=== PATIENT | male | born 1945 | race Caucasian/White ===

== ENCOUNTER → 2017-01-22 10:02 | Outpatient (CLI) | payer MEDICARE, BC ==
[2015-09-11 12:25] VITALS: BMI 23.0
[~2017-01-22 10:02] MED LIST: ANORO ELLIPTA1 EACH INH; ATARAX 25 MG TA25 MG PO; BAYER CHEWABLE81 MG PO; ELIQUIS2.5 MG PO; GLUCOSAMINE & C1 CAP PO; HYDROCODONE-APA1 TAB PO; KEFLEX500 MG PO; LOPID600 MG PO; METAMUCIL FIB1 WAFER PO; MIRALAX17 GM PO; MULTIPLE VITAMI1 TA1 PO; NASACORT10.8 ML NASAL; NEXIUM40 MG PO; NORVASC5 MG PO; PRILOSEC20 MG PO; VITAMIN E400 UNI2 PO
== END | disposition home or self-care (01) ==
LOC: D.LABREF 10:02
DX: M19.90 Unspecified osteoarthritis, unspecified site (principal); Z11.8 Encounter for screening for other infectious and parasitic diseases

== ENCOUNTER 2017-01-31 10:00 | Inpatient (IN) | payer MEDICARE, BC ==
[~2017-01-31] VITALS: Ht 182.9 cm; Wt 79.1 kg
--- NOTE | ~2017-01-31 | OP ---
PATIENT NAME: CRISPIN JOHNSTON MEDICAL RECORD: [id number] :47 LOCATION:D D.2232 ADMISSION DATE:02/06/17 SURGEON: SRINIVASA COATS DO DATE OF OPERATION: 02/06/2017 DATE OF PROCEDURE: 02/06/2017 PROCEDURE PERFORMED: Right total hip arthroplasty. PREOPERATIVE DIAGNOSIS: Right hip avascular necrosis. POSTOPERATIVE DIAGNOSIS: Right hip avascular necrosis. INDICATIONS: Mr. Johnston is a 71-year-old male who presented to my office with longstanding right hip pain and left hip pain, right greater than left. He said that he has tried everything he can imagine without surgery and got an MRI from his primary care, which showed the AVN. I told him that he was at a stage where he is about to collapse and that we can watch it until it did. He said he did not wish that to happen, he wanted to get something done. He is tired of dealing with the pain, so he was informed of the risks and benefits of a total hip and he verbally consented to that. He was scheduled for today. SURGEON: Srinivasa Coats DO COMPLICATIONS: None. BLOOD LOSS: 250 mL. DESCRIPTION OF PROCEDURE: The patient was given a block in the preoperative area by anesthesia and taken to the operative suite, given a gram of Ancef preoperatively and TXA as well and the right hip was prepped and draped in sterile fashion. A timeout was performed and everyone was in agreeance to this as the correct side, site and patient. Once this was done, the incision was made right over the tensor fascia jessica and careful dissection made down to the fascia itself of the muscle. The fascia was incised and then off the muscle belly. The fascia was taken anteriorly and muscle belly posteriorly with large Adson Michele. Then the fascia over the rectus was incised and the Adson Michele was turned more and taken the rectus medially and the tensor fascia laterally. The vessels were then encountered. They were tied off and coagulated with the Aquamantys and then bovied through with the plasma knife. Then, the hip capsule was encountered and was incised. Retractors were placed around the femoral neck. Once this was done, the femoral neck cut was made and the head was removed with a corkscrew. The acetabulum was then exposed and the Charnley was placed. The labrum was removed and reaming began, starting with 44 up to 56. His bone was quite soft, so we put some of the reamings into the acetabulum and impacted a 56 cup and was seen to be in very good position and went in well. After this was done, the femur was then addressed. The femur was exposed more and the hook under the femur was put on the femur and the hip was dropped and put in an external rotation. Femur was in abduction and extension. The broaching began. Gold Lasso cutter was used to get into the canal and the canal finder and we broached up to 12, which seemed to be a good fit. Reduction was then made and seemed to need higher offset, went to high offset with standard neck and once this reduction was made and x-rays were taken, this was seen to be in good position and good length compared to the other side. This was then inserted and reduced. Any bleeders were coagulated at that time and thorough OPERATIVE REPORT [id number] CRISPIN JOHNSTON irrigation was made. After it was reduced, x-rays were taken. There were no fractures seen in the femur. The stem was in good position and good length on the hip. We then irrigated and closed the capsule with #2 Ethibond and then Farhan was placed in the wound. We then irrigated again and dried well and the fascia was closed with #1 Vicryl [id number] and then running locking stitch. The skin was then closed with 2-0 Vicryl and Prineo on the skin. Telfa and Tegaderm were placed over that. The patient was awakened and taken to recovery in stable condition. Blood loss 250. Complications none, right total hip. TRANSINT:[id number] Voice Confirmation ID: [id number] DOCUMENT ID: [id number] SRINIVASA COATS DO at 1216 CC: [id number] DICTATION DATE: 02/06/17 1038 INVESTMENT ACCOUNTANT: 02/06/17 1131 ADM IN [facility] [address] [id number]
[~2017-01-31 10:00] MED LIST changes: -ATARAX 25 MG TA25 MG PO; -ELIQUIS2.5 MG PO; -HYDROCODONE-APA1 TAB PO; -KEFLEX500 MG PO
[2017-01-31 11:18] LABS: BASOPHILS 0.2 % (0-2); EOSINOPHILS 1.3 % (0-7); HEMATOCRIT 45.8 % (42.0-54.0); HEMOGLOBIN 15.9 g/dL (13.5-17.5); IMMATURE GRANULOCYTES 0.2 % (0-5); LYMPHOCYTES 25.9 % (15-50); MCH 36.1 pg (26.0-34.0); MCHC 34.7 g/dL (31.0-37.0); MCV 104.1 fL (80.0-100.0); MEAN PLATELET VOLUME 9.8 fL (7.4-10.4); MONOCYTES 10.5 % (2-11); NEUTROPHILS 61.9 % (40-80); PLATELET COUNT 208 10x3/uL (130-400); RDW 13.1 % (11.5-14.5); WBC 5.3 10x3/uL (4.8-10.8)
[2017-01-31 11:26] LABS: ANION GAP 9.9 mmol/L (8-16); CALCIUM 9.2 mg/dL (8.5-10.1); CARBON DIOXIDE 32.8 mmol/L (21.0-32.0); CREATININE - SERUM 1.2 mg/dL (0.6-1.3); POTASSIUM - SERUM 3.7 mmol/L (3.5-5.1)
[2017-01-31 11:27] LABS: INR 0.93 (0.85-1.17); PROTIME 12.1 SECONDS (11.6-15.0)
[2017-01-31 12:07] LABS: APPEARANCE CLEAR (CLEAR); BILIRUBIN NEGATIVE (NEGATIVE); COLOR YELLOW (YELLOW); GLUCOSE NEGATIVE (NEGATIVE); KETONE NEGATIVE (NEGATIVE); NITRITE NEGATIVE (NEGATIVE); PROTEIN NEGATIVE (NEGATIVE); UROBILINOGEN NORMAL (NORMAL)
[2017-02-06 06:12] VITALS: BP 117/66; BMI 23.6
[2017-02-06 11:12] VITALS: BP 139/70
[2017-02-07 04:12] VITALS: Ht 182.9 cm; Wt 79.1 kg
[2017-02-07 05:43] LABS: HEMATOCRIT 36.3 % (42.0-54.0); HEMOGLOBIN 12.6 g/dL (13.5-17.5); MCH 35.8 pg (26.0-34.0); MCHC 34.7 g/dL (31.0-37.0); MCV 103.1 fL (80.0-100.0); RBC 3.52 10x6/uL (4.20-6.10); RDW 13.4 % (11.5-14.5); WBC 10.2 10x3/uL (4.8-10.8)
[2017-02-07 08:44] VITALS: BP 110/60
[2017-02-07 11:53] VITALS: BP 106/60
[2017-02-07 20:00] VITALS: BP 116/52
[2017-02-08] VITALS: BP 110/58
[2017-02-08 05:00] VITALS: BP 133/70
[2017-02-08 06:02] LABS: HEMATOCRIT 32.9 % (42.0-54.0); HEMOGLOBIN 11.4 g/dL (13.5-17.5); MCHC 34.7 g/dL (31.0-37.0); MCV 103.8 fL (80.0-100.0); RBC 3.17 10x6/uL (4.20-6.10); RDW 13.2 % (11.5-14.5); WBC 8.2 10x3/uL (4.8-10.8)
[2017-02-08 08:33] VITALS: BP 124/66
[2017-02-08 20:00] VITALS: BP 123/61
[2017-02-09 04:00] VITALS: BP 119/63
[2017-02-09] MEDS ORDERED: ELIQUIS2.5 MG PO (07:30)
[2017-02-09] MEDS ORDERED: HYDROCODONE-APA1 TAB PO (07:30)
[2017-02-09] MEDS ORDERED: ATARAX 25 MG TA25 MG PO (07:30)
[2017-02-09] MEDS ORDERED: KEFLEX500 MG PO (07:31)
[2017-02-09 08:16] VITALS: BP 126/60
[2017-02-09 12:57] VITALS: BP 132/64
[2017-02-09 16:14] VITALS: BP 125/59
== END 2017-02-09 20:30 | DRG 470 ==
LOC: D.MS 02-06 05:07 → D.SDCHOLD 02-06 05:07 → D.MS 02-06 10:51
PROVIDERS: Orthopaedic Surgery
PROC: 0SR90JZ Replacement of Right Hip Joint with Synthetic Substitute, Open Approach (ICD-10-PCS; principal; 2017-02-06 07:30)
DX: M87.9 Osteonecrosis, unspecified (principal); J44.9 Chronic obstructive pulmonary disease, unspecified; I10 Essential (primary) hypertension; F17.200 Nicotine dependence, unspecified, uncomplicated; D75.89 Other specified diseases of blood and blood-forming organs; F10.10 Alcohol abuse, uncomplicated

== ENCOUNTER 2017-02-09 20:50 | Inpatient (IN) | payer MEDICARE, BC ==
[~2017-02-09] VITALS: Ht 182.9 cm; Wt 78.9 kg
--- NOTE | ~2017-02-09 | RHP ---
PATIENT: CRISPIN JOHNSTON MEDICAL RECORD: [id number] ACCOUNT: [id number] LOCATION:[facility].1108 : 47 ADMISSION DATE: 02/09/17 REHABILITATION HISTORY AND PHYSICAL EXAMINATION POST ADMISSION PHYSICIAN EXAMINATION DATE OF ADMISSION TO THE REHAB: 02/09/2017. 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 HISTORY OF PRESENT ILLNESS: The patient admitted to the rehab secondary to pain secondary to avascular necrosis of his right hip. The patient is a 70-year-old gentleman who has severe avascular necrosis to his right hip. He had postoperative blood loss leukemia and increased postop pain and agitation. He has a history of ETOH uses. He is continued to be monitored for possible DTs. He has got a medical history of diverticulitis with status post colostomy with a later takedown and monitor for possible postop ileus. He has had problems with anesthesia in the past and also pain medicine use. He has macrocytosis secondary to chronic ETOH ingestion. He is on Eliquis for anticoagulation. He lives at home with his . He was independent with ADLs and mobility, status post prior to surgery. He is currently set up from max assist with ADLs and moderate assist to total assist with mobility. Plan is to return home with his hopefully at a prior level of functioning or better. COMORBIDITIES: In this patient include status post total hip arthroplasty. He has got chronic avascular necrosis. He has got pain, postoperative blood loss anemia, COPD, hypertension, tobacco use, ETOH use, macrocytosis, immobility and self-care deficits. PAST MEDICAL HISTORY: Significant for COPD, hypertension, diverticulitis, status post colostomy. He has had a left elbow tendon rupture, tobacco use, and alcohol use. PAST SURGICAL HISTORY: Includes appendectomy, tonsillectomy, appendectomy, cervical fusion times 2. He has had a Natalia's procedure for colostomy reversal and left elbow surgery. ALLERGIES: OXYCODONE. CURRENT MEDICATIONS: Include vitamin E 400 units daily. He is on Anoro 1 puff daily. He is on Flonase nasal spray 1 spray daily, multivitamin 1 tab daily. He is on glucosamine and chondroitin sulfate 1 cap daily. He is on Protonix 40 mg daily, Keflex 500 mg b.i.d., Eliquis 2.5 mg b.i.d., amlodipine 2.5 mg daily, polyethylene glycol 17 grams in 8 ounces of water daily. He is on Metamucil one wafer daily. He is on Atarax 50 mg q.6 hours p.r.n. and [place] as needed for pain. HABITS: He does have a history of alcohol, tobacco use. FAMILY HISTORY: Noncontributory. SOCIAL HISTORY: The patient hopes to return back home and get back to his prior level of functioning. HISTORY AND PHYSICAL [id number] CRISPIN JOHNSTON REVIEW OF SYSTEMS: GENERAL: He does complain of some weakness. HEENT: Denies cold, congestion at this time, but does complain of some cough. LUNGS: Does not complain of any shortness of breath. ABDOMEN: Denies any change in bowel or bladder habits. PHYSICAL EXAMINATION: VITAL SIGNS: Stable. He is afebrile. GENERAL: A well-developed gentleman in no acute distress, alert upon exam. HEENT: Normocephalic and atraumatic. Mucosa moist. NECK: Supple. No lymphadenopathy. LUNGS: Clear at this time. HEART: Regular rate and rhythm. ABDOMEN: Benign. EXTREMITIES: No abnormal postop swelling at this time. NEUROLOGIC: Seems intact. LABORATORY DATA: His white count is 6.2, H&H of 10 and 29, and platelet count was noted to be 219. His MCV is elevated at 102.1 from his previous alcohol use. Sodium 138, potassium 3.7, BUN and creatinine of 17 and 1.0 and blood sugar was noted to be 99. ASSESSMENT: This is a 71-year-old gentleman admitted to the rehab with a working diagnosis of status post total hip replacement secondary to avascular necrosis. The patient has potential to make improvement. We instituted the following multidisciplinary therapies including to, but not limited to physical, occupational, respiratory, speech, nutritional services, prosthetics and orthotics. Given his complex condition and risk for more complications, rehabilitation services cannot be provided at a low level of care such as a senior living facility. PLAN: 1. Admit to [facility] rehab for intensive inpatient therapy to include the following disciplines: A. Physical therapy to improve gait, all transfer skills and bed mobility to a modified independent level. B. Occupational therapy to improve activities of daily living to a modified independent level. C. Case management to assist with discharge planning and placement options. D. Nutrition to assist with nutritional needs. E. Rehabilitation nursing to assist in monitoring the patient's underlying medical conditions and to assist with any type of bowel or bladder management. 2. The patient's current medication and medical care will be continued. 3. We will go ahead and give him some medication for his cough. 4. We will watch for any signs of DTs. 5. Discuss this patient during care team staff meeting this week. TRANSINT:[id number] Voice Confirmation ID: [id number] DOCUMENT ID: [id number] ANDREA notes whether there has been none or any medical/functional change since admission: - No change since prescreen. HISTORY AND PHYSICAL [id number] CRISPIN JOHNSTON attests patient continues to be appropriate for IRF: - Continues to be appropriate. JEFF SHORT MD at 1057 CC: [id number] DICTATION DATE: 02/10/17 1120 INCIDENT COORDINATOR: 02/10/17 1204 ADM IN [place] [id number] [place] [id number]
[~2017-02-09 20:50] MED LIST changes: +ATARAX 25 MG TA25 MG PO; +ELIQUIS2.5 MG PO; +HYDROCODONE-APA1 TAB PO; +KEFLEX500 MG PO
[2017-02-09 21:37] VITALS: BP 111/62
[2017-02-10 06:23] LABS: BASOPHILS 0.2 % (0-2); EOSINOPHILS 3.5 % (0-7); HEMATOCRIT 29.2 % (42.0-54.0); HEMOGLOBIN 10.3 g/dL (13.5-17.5); IMMATURE GRANULOCYTES 0.2 % (0-5); LYMPHOCYTES 19.2 % (15-50); MCHC 35.3 g/dL (31.0-37.0); MCV 102.1 fL (80.0-100.0); MEAN PLATELET VOLUME 9.8 fL (7.4-10.4); MONOCYTES 17.8 % (2-11); NEUTROPHILS 59.1 % (40-80); PLATELET COUNT 219 10x3/uL (130-400); RBC 2.86 10x6/uL (4.20-6.10); RDW 12.7 % (11.5-14.5); WBC 6.2 10x3/uL (4.8-10.8)
[2017-02-10 06:36] LABS: CALC OSMOLALITY 277 mosm/kg (275-300); CALCIUM 8.4 mg/dL (8.5-10.1); CHLORIDE - SERUM 101 mmol/L (98-107); GLUCOSE 99 mg/dL (74-106); POTASSIUM - SERUM 3.7 mmol/L (3.5-5.1); SODIUM 138 mmol/L (136-145); UREA NITROGEN 17 mg/dL (7-18); eGFR NON AFRICAN AMERICAN 79 mL/min (90-120)
[2017-02-10 08:11] VITALS: BP 130/64
[2017-02-10 14:35] VITALS: Ht 182.9 cm; Wt 78.9 kg
[2017-02-10 22:05] VITALS: BP 117/59
[2017-02-11 08:16] VITALS: BP 119/71
[2017-02-11 19:53] VITALS: BP 110/54
[2017-02-12 08:00] VITALS: BP 141/67
[2017-02-12] MEDS ORDERED: HYDROCODONE-APA1 TAB PO (10:58)
== END 2017-02-12 12:35 | disposition home or self-care (01) | DRG 554 ==
LOC: D.REHAB 20:50
PROVIDERS: Emergency Medicine
DX: M87.9 Osteonecrosis, unspecified (principal); D62 Acute posthemorrhagic anemia; J44.9 Chronic obstructive pulmonary disease, unspecified; I10 Essential (primary) hypertension; Z72.0 Tobacco use

== ENCOUNTER → 2017-09-10 07:09 | Outpatient (CLI) | payer MEDICARE, BC ==
[2017-02-10 14:35] VITALS: BMI 23.6
[~2017-09-10 07:09] MED LIST changes: +ATIVAN1 MG PO; +CALCIUM 600+D T1 TA1 PO; +ENDOCET 10-3251 TAB PO; +NORCO 7.5/325 T1 TA1 PO; +ROCEPHIN 2 GM/D52 G1 IV; +TRAZODONE HCL50 MG PO; +ULTRAM50 MG PO; +ZOFRAN ODT4 MG/UDTAB PO
== END | disposition home or self-care (01) ==
LOC: D.MRI 07:09
DX: S46.001D Unspecified injury of muscle(s) and tendon(s) of the rotator cuff of right shoulder, subsequent encounter (principal)

== ENCOUNTER 2017-09-18 09:55 | Day surgery (SDC) | payer MEDICARE, BC ==
[2017-09-17 13:48] LABS: HEMATOCRIT 48.2 % (42.0-54.0); HEMOGLOBIN 17.3 g/dL (13.5-17.5); MCH 36.8 pg (26.0-34.0); MCHC 35.9 g/dL (31.0-37.0); MCV 102.6 fL (80.0-100.0); MEAN PLATELET VOLUME 9.9 fL (7.4-10.4); RBC 4.7 10x6/uL (4.20-6.10); RDW 12.5 % (11.5-14.5); WBC 6.9 10x3/uL (4.8-10.8)
[~2017-09-18] VITALS: Ht 182.9 cm; Wt 78.5 kg
--- NOTE | ~2017-09-18 | OP ---
PATIENT NAME: CRISPIN JOHNSTON MEDICAL RECORD: [id number] :47 LOCATION:[facility] ADMISSION DATE: SURGEON: SRINIVASA COATS DO DATE OF OPERATION: 09/18/2017 PROCEDURE PERFORMED: Right shoulder arthroscopy with subacromial decompression, distal clavicle excision, biceps tenodesis, subscapularis repair, and mini open supraspinatus repair. 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 INDICATION FOR THE PROCEDURE: Mr. Johnston is a 72-year-old male that presented to my office a month ago complaining of right shoulder pain. I did give him an injection. He had a fall back in April and had shoulder pain since. He called back and said injection did not help. We ordered an MRI. MRI showed the findings as discussed above; the subscapularis tear with retraction to the glenoid with biceps tendon subluxing medially into the joint, bursal-sided supraspinatus tear, AC joint arthritis, and type 2 acromion. The patient was talked over the phone and explained what was found on the MRI. He said he wanted surgery due to the fact he is tired of dealing with the pain. He is aware of risks and benefits of the procedures including increased risk for retear due to the fact he had 2 tendons torn. He is okay with that and consented to the procedure. SURGEON: Srinivasa Coats DO DESCRIPTION OF PROCEDURE: The patient was given a block preoperatively by the anesthesia, taken to the operative suite, laid in the left lateral recumbent position with the right arm up. Time-out was performed and everyone was in agreement as to correct side, site, patient, and procedure. The patient was given 900 mg of clindamycin preoperatively. The right upper extremity was prepped and draped in sterile fashion with right arm hung on the boom with 15 pounds on it. The shoulder joint was then injected with 60 mL of normal saline put in from posterior portal and then the posterior portal was established with #11 blade scalpel. Trocar was entered into the joint and the joint was inspected. Joint line looked good. No osteoarthritis of the shoulder joint itself; however, immediately, the biceps tendon was noted to be subluxed medially. This was tenotomized at that time. After the anterior portal was established with an 18-gauge spinal needle, then a trocar was put in. A burner was used to do the tenotomy. The subscapularis tendon was then encountered and seen, grasped, and seemed to have some adhesions. These were released using a shaver. Once the adhesions were released, it was easily reducible to the lesser tuberosity and a FiberTape was used to bite through the superior portion of the subscapularis tendon that had been torn. The inferior proximal third of the tendon was left intact on lesser tuberosity. The torn portion was grasped with the Scorpion and a horizontal mattress stitch was put in using a FiberTape and then pulled and reduced to the lesser tuberosity. Austin was then put into place to secure it. It had very nice reduction with a single anchor. The tendon was seen to be back in position where it should be and then this was OPERATIVE REPORT [id number] PRESTONCRISPIN GUZMÁN tested with internal and external rotation, seemed to have very good fixation. The FiberTape was cut with a cutter. The lesser tuberosity had been prepared with a shaver to remove all soft tissue and create a bleeding surface. The scope was then put in the subacromial space. A subacromial decompression was then performed and distal clavicle excision after lateral portal had been established. The anterolateral portal had been established previously to assist with the subscapularis repair. The supraspinatus tendon was then inspected and bursectomy was done and seen to have a bursal-sided smaller tear towards the anterior portion of the cuff. This was noted and converted to open at that time. Incision was extended over the lateral portal and careful dissection was made down to the tear itself. It had been marked with a spinal needle with Leia's and was exposed. The greater tuberosity was then prepared with a shaver and decorticated. Then a punch was used to insert the anchor and Scorpion was used to bite through the supraspinatus with a single FiberTape anterior and posterior and then pulled over laterally to anchor. This had a nice reduction and the scope had been removed prior to this. This was then irrigated and then I went to the anterior portion of the arm. Incision was made in the subpec area. Dissection was made down to the humerus. After looking for quite some time, the long head of the biceps tendon could not be encountered, likely due to the fact that it had been subluxed out of the bicipital groove for some time. This part of the surgery was left tenonotomy not tenodesed. The wounds were all then thoroughly irrigated and closed with 2-0 Vicryl and then 3-0 Monocryl ran on the skin. The portal sites had been closed with 3-0 Vicryl in inverted interrupted fashion. Telfa and Tegaderm were placed over each of the sites. The patient was awakened and taken to recovery in stable condition. Blood loss was minimal. COMPLICATIONS: None. TRANSINT:[id number] Voice Confirmation ID: [id number] DOCUMENT ID: [id number] SRINIVASA COATS DO at 1022 CC: [id number] DICTATION DATE: 09/18/17 173 MANAGER MARKET INTELLIGENCE: 09/18/17 1905 [facility] 09/18/17 [facility] [address] [place] [address]
[~2017-09-18 09:55] MED LIST changes: -ATIVAN1 MG PO; -CALCIUM 600+D T1 TA1 PO; -ENDOCET 10-3251 TAB PO; -NORCO 7.5/325 T1 TA1 PO; -ROCEPHIN 2 GM/D52 G1 IV; -TRAZODONE HCL50 MG PO; -ULTRAM50 MG PO; -ZOFRAN ODT4 MG/UDTAB PO
[2017-09-18] MEDS ORDERED: BAYER CHEWABLE81 MG PO (10:30)
[2017-09-18 10:34] VITALS: BP 140/76; Ht 182.9 cm; Wt 78.5 kg
[2017-09-18] MEDS ORDERED: KEFLEX500 MG PO (16:55)
[2017-09-18] MEDS ORDERED: ZOFRAN ODT4 MG/UDTAB PO (16:56)
[2017-09-18] MEDS ORDERED: NORCO 7.5/325 T1 TA1 PO (16:56)
[2017-09-18] MEDS ORDERED: ULTRAM50 MG PO (17:22)
[2017-10-09] MEDS ORDERED: HYDROCODONE-APA1 TAB PO (17:25)
== END 2017-09-18 18:45 | disposition home or self-care (01) ==
LOC: D.OPS 09:55 → D.PAN 13:15 → D.OPS 18:45
PROVIDERS: Anesthesiology
DX: M75.111 Incomplete rotator cuff tear or rupture of right shoulder, not specified as traumatic (principal); M75.41 Impingement syndrome of right shoulder; M19.011 Primary osteoarthritis, right shoulder; M67.813 Other specified disorders of tendon, right shoulder; Z01.812 Encounter for preprocedural laboratory examination

== ENCOUNTER 2017-09-30 21:57 | Observation (INO) | payer MEDICARE, BC ==
[~2017-09-30] VITALS: Ht 182.9 cm; Wt 78.6 kg
[~2017-09-30 21:57] MED LIST changes: +NORCO 7.5/325 T1 TA1 PO; +ULTRAM50 MG PO; +ZOFRAN ODT4 MG/UDTAB PO
[2017-09-30 22:58] LABS: BASOPHILS 0.3 % (0-2); EOSINOPHILS 2.2 % (0-7); HEMATOCRIT 41.1 % (42.0-54.0); HEMOGLOBIN 14.3 g/dL (13.5-17.5); IMMATURE GRANULOCYTES 0.3 % (0-5); MCH 35.7 pg (26.0-34.0); MCHC 34.8 g/dL (31.0-37.0); MCV 102.5 fL (80.0-100.0); MEAN PLATELET VOLUME 9.3 fL (7.4-10.4); MONOCYTES 10.5 % (2-11); NEUTROPHILS 65.7 % (40-80); RBC 4.01 10x6/uL (4.20-6.10); RDW 12.4 % (11.5-14.5); WBC 9.9 10x3/uL (4.8-10.8)
[2017-09-30 22:59] LABS: PLATELET COUNT 284 10x3/uL (130-400)
[2017-09-30 23:10] LABS: INR 0.82 (0.85-1.17)
[2017-09-30 23:15] LABS: ALBUMIN 3.5 g/dL (3.4-5.0); ANION GAP 9.9 mmol/L (8-16); BILIRUBIN - TOTAL 0.34 mg/dL (0.2-1.3); CALCIUM 8.6 mg/dL (8.5-10.1); CARBON DIOXIDE 32.7 mmol/L (21.0-32.0); CREATININE - SERUM 1.1 mg/dL (0.6-1.3); POTASSIUM - SERUM 3.6 mmol/L (3.5-5.1); PROTEIN - SERUM 6.8 g/dL (6.4-8.2)
[2017-09-30] MEDS ORDERED: CALCIUM 600+D T1 TA1 PO (23:49)
[2017-10-01 00:11] VITALS: BP 126/76; Ht 182.9 cm; Wt 78.6 kg
[2017-10-01 04:49] VITALS: BP 139/82
[2017-10-01 09:11] VITALS: BP 139/80
[2017-10-01 12:18] VITALS: BP 98/73
[2017-10-01] MEDS ORDERED: ATIVAN1 MG PO (13:01)
[2017-10-09] MEDS ORDERED: HYDROCODONE-APA1 TAB PO (17:25)
== END 2017-10-01 14:22 | disposition home or self-care (01) ==
LOC: D.ER 21:57 → OBSVTIME 22:43 → D.EDHOLD 22:43 → D.MS 23:03
PROVIDERS: Emergency Medicine
DX: G89.18 Other acute postprocedural pain (principal); I10 Essential (primary) hypertension; A41.9 Sepsis, unspecified organism; F17.200 Nicotine dependence, unspecified, uncomplicated

== ENCOUNTER → 2017-10-09 10:45 | Outpatient (CLI) | payer MEDICARE, BC ==
[2017-10-01 00:11] VITALS: BMI 23.5
[~2017-10-09 10:45] MED LIST changes: +ATIVAN1 MG PO; +CALCIUM 600+D T1 TA1 PO; +ENDOCET 10-3251 TAB PO; +ROCEPHIN 2 GM/D52 G1 IV; +TRAZODONE HCL50 MG PO
[2017-10-09 11:11] LABS: BASOPHILS 0.2 % (0-2); EOSINOPHILS 2.2 % (0-7); HEMATOCRIT 39.5 % (42.0-54.0); HEMOGLOBIN 13.9 g/dL (13.5-17.5); IMMATURE GRANULOCYTES 0.2 % (0-5); MCH 35.8 pg (26.0-34.0); MCHC 35.2 g/dL (31.0-37.0); MCV 101.8 fL (80.0-100.0); MEAN PLATELET VOLUME 10.1 fL (7.4-10.4); MONOCYTES 12.7 % (2-11); NEUTROPHILS 72.7 % (40-80); PLATELET COUNT 333 10x3/uL (130-400); RBC 3.88 10x6/uL (4.20-6.10); RDW 11.8 % (11.5-14.5); WBC 8.3 10x3/uL (4.8-10.8)
[2017-10-09 13:20] LABS: ERYTHROCYTE SEDIMENTATION RATE 75 mm/hr (0-20)
[2017-10-10 05:24] LABS: HEMATOCRIT 38.3 % (42.0-54.0); HEMOGLOBIN 13.5 g/dL (13.5-17.5); MCH 35.6 pg (26.0-34.0); MCHC 35.2 g/dL (31.0-37.0); MCV 101.1 fL (80.0-100.0); MEAN PLATELET VOLUME 9.3 fL (7.4-10.4); RBC 3.79 10x6/uL (4.20-6.10); RDW 11.6 % (11.5-14.5); WBC 7.7 10x3/uL (4.8-10.8)
== END | disposition home or self-care (01) ==
LOC: D.LABREF 10:45
PROVIDERS: Anesthesiology; Orthopaedic Surgery
DX: M25.511 Pain in right shoulder (principal)

== ENCOUNTER 2017-10-10 05:06 | Inpatient (IN) | payer MEDICARE, BC ==
[2017-10-10] VITALS (12 sets, daily range): BP systolic 104–131; BP diastolic 58–73; BMI 23.5
[~2017-10-10] VITALS: Ht 182.9 cm; Wt 78.5 kg
--- NOTE | ~2017-10-10 | OP ---
PATIENT NAME: CRISPIN JOHNSTON MEDICAL RECORD: [id number] :47 LOCATION:D D.2237 ADMISSION DATE: SURGEON: NEEL COATS DO DATE OF OPERATION: 10/10/2017 PROCEDURE PERFORMED: Right shoulder arthroscopy with right upper arm incision and debridement. PREOPERATIVE DIAGNOSIS: Right shoulder infection and hematoma. POSTOPERATIVE DIAGNOSIS: Right shoulder infection and hematoma. INDICATIONS: The patient underwent a right shoulder scope with subscapularis repair and supraspinatus repair, biceps tenotomy. About 3-4 weeks ago, he subsequently developed a large hematoma around the site where the biceps was attempted to be tenodesed in the upper arm and continued to have right shoulder pain. This did not improve with time and he was being admitted for pain control last week when this did not get better with infection. His labs were drawn and his ESR and CRP were elevated. He was informed that it could be infected and we washed out and take cultures. He was aware of the risks and benefits of the procedure and was aware that he may need antibiotics for 6 weeks. He consented to the procedure. DESCRIPTION OF PROCEDURE: The patient was taken to the operative suite, laid in the left lateral recumbent position with the right arm up. The right shoulder was prepped and draped in sterile fashion. Timeout was performed, everyone was in agreement with the correct side, site, patient and procedure. He did get Ancef prior to getting cultures. Then the procedure began, first with inflating the shoulder joint with 60 cc of normal saline and then a #11 blade scalpel was used to establish posterior portal and scope was entered into the joint. Once the scope was entered into the joint, the joint did not appear to be infected. No galileo purulence. There was some inflamed tissue that was expected due to surgery. Debridement was done in the shoulder joint itself with the shaver after the anterior portal was established, first with an 18-gauge spinal needle and then the blade scalpel. The supraspinatus tendon and the subscapularis tendons were inspected and seemed to be intact, repaired held and 3 liters of saline was used to wash the shoulder joint out. Then, after this was done, the incision was made over the right upper arm. There was some purulence at that site and hematoma. Once incision was made, it was evacuated and then that was irrigated with 2500 mL of normal saline and then was closed with 4-0 Monocryl, first with inverted interrupted stitch and then a running stitch and then the 2 portal sites were closed with 4-0 Monocryl in inverted interrupted fashion. The patient was then dressed with 4 x 4s and a Tegaderm and awakened and taken to recovery in stable condition BLOOD LOSS: Minimal. COMPLICATIONS: None. TRANSINT:[id number] Voice Confirmation ID: [id number] DOCUMENT ID: [id number] OPERATIVE REPORT [id number] CRISPIN JOHNSTON MICHAEL D, DO at 1309 CC: [id number] DICTATION DATE: 10/10/17912 PUBLIC ADDRESS ANNOUNCER: 10/10/17 09[id number] [place] [address]
[~2017-10-10 05:06] MED LIST changes: -ENDOCET 10-3251 TAB PO; -ROCEPHIN 2 GM/D52 G1 IV; -TRAZODONE HCL50 MG PO
[2017-10-10] MEDS ORDERED: ENDOCET 10-3251 TAB PO (06:17)
[2017-10-11 05:14] VITALS: BP 134/64
[2017-10-11 05:55] LABS: BASOPHILS 0.1 % (0-2); EOSINOPHILS 0.8 % (0-7); HEMATOCRIT 33.7 % (42.0-54.0); HEMOGLOBIN 11.5 g/dL (13.5-17.5); IMMATURE GRANULOCYTES 0.2 % (0-5); LYMPHOCYTES 23.4 % (15-50); MCH 34.6 pg (26.0-34.0); MCHC 34.1 g/dL (31.0-37.0); MCV 101.5 fL (80.0-100.0); MEAN PLATELET VOLUME 9.7 fL (7.4-10.4); MONOCYTES 12.1 % (2-11); NEUTROPHILS 63.4 % (40-80); PLATELET COUNT 272 10x3/uL (130-400); RBC 3.32 10x6/uL (4.20-6.10); RDW 11.6 % (11.5-14.5)
[2017-10-11 06:17] LABS: ALBUMIN 2.5 g/dL (3.4-5.0); ALKALINE PHOSPHATASE 80 U/L (46-116); ALT (SGPT) 20 U/L (10-68); BILIRUBIN - TOTAL 0.26 mg/dL (0.2-1.3); CALC OSMOLALITY 274 mosm/kg (275-300); CALCIUM 8.2 mg/dL (8.5-10.1); CHLORIDE - SERUM 105 mmol/L (98-107); CREATININE - SERUM 0.9 mg/dL (0.6-1.3); GLUCOSE 106 mg/dL (74-106); MAGNESIUM - SERUM 1.9 mg/dL (1.8-2.4); POTASSIUM - SERUM 3.8 mmol/L (3.5-5.1); PROTEIN - SERUM 5.9 g/dL (6.4-8.2); SODIUM 138 mmol/L (136-145); UREA NITROGEN 11 mg/dL (7-18); eGFR NON AFRICAN AMERICAN 89 mL/min (90-120)
[2017-10-11 09:30] VITALS: BP 106/77
[2017-10-11 12:34] VITALS: BP 124/66
[2017-10-11 15:52] VITALS: Ht 182.9 cm; Wt 78.5 kg
[2017-10-11 18:35] VITALS: BP 127/72
[2017-10-11 21:05] VITALS: BP 138/79
[2017-10-12 05:07] VITALS: BP 124/74
[2017-10-12 05:33] LABS: HEMATOCRIT 30.9 % (42.0-54.0); HEMOGLOBIN 10.9 g/dL (13.5-17.5); LYMPHOCYTES 26.3 % (15-50); MCH 35.4 pg (26.0-34.0); MCHC 35.3 g/dL (31.0-37.0); MCV 100.3 fL (80.0-100.0); MEAN PLATELET VOLUME 8.9 fL (7.4-10.4); NEUTROPHILS 64.6 % (40-80); PLATELET COUNT 266 10x3/uL (130-400); RBC 3.08 10x6/uL (4.20-6.10); RDW 11.6 % (11.5-14.5)
[2017-10-12 05:39] LABS: WBC 7.2 10x3/uL (4.8-10.8)
[2017-10-12 06:15] LABS: ALBUMIN 2.4 g/dL (3.4-5.0); ALKALINE PHOSPHATASE 80 U/L (46-116); ALT (SGPT) 24 U/L (10-68); BILIRUBIN - TOTAL 0.23 mg/dL (0.2-1.3); CALC OSMOLALITY 272 mosm/kg (275-300); CALCIUM 8.3 mg/dL (8.5-10.1); CARBON DIOXIDE 28.8 mmol/L (21.0-32.0); CHLORIDE - SERUM 104 mmol/L (98-107); CREATININE - SERUM 0.9 mg/dL (0.6-1.3); GLUCOSE 110 mg/dL (74-106); MAGNESIUM - SERUM 1.8 mg/dL (1.8-2.4); POTASSIUM - SERUM 3.8 mmol/L (3.5-5.1); PROTEIN - SERUM 5.7 g/dL (6.4-8.2); SODIUM 136 mmol/L (136-145); UREA NITROGEN 13 mg/dL (7-18); eGFR NON AFRICAN AMERICAN 89 mL/min (90-120)
[2017-10-12 08:44] VITALS: BP 122/71
[2017-10-12] MEDS ORDERED: ROCEPHIN 2 GM/D52 G1 IV (15:26)
[2017-10-12] MEDS ORDERED: ATIVAN1 MG PO (15:27)
[2017-10-12] MEDS ORDERED: TRAZODONE HCL50 MG PO (15:27)
== END 2017-10-12 16:56 | disposition home health service (06) | DRG 908 ==
LOC: D.MS 05:06 → D.OPS 05:06 → D.PAN 07:30 → D.OPS 07:30 → D.PAN 09:30 → D.OPS 09:30 → D.MS 10:15 → D.OPS 10:16 → D.MS 10:17
PROVIDERS: Family Medicine; Orthopaedic Surgery
PROC: 0RCJ4ZZ Extirpation of Matter from Right Shoulder Joint, Percutaneous Endoscopic Approach (ICD-10-PCS; principal; 2017-10-10 07:30)
PROC: 0RBJ4ZZ Excision of Right Shoulder Joint, Percutaneous Endoscopic Approach (ICD-10-PCS; 2017-10-10 07:30)
PROC: 02HV33Z Insertion of Infusion Device into Superior Vena Cava, Percutaneous Approach (ICD-10-PCS; 2017-10-12)
PROC: B548ZZA Ultrasonography of Superior Vena Cava, Guidance (ICD-10-PCS; 2017-10-12)
DX: M96.840 Postprocedural hematoma of a musculoskeletal structure following a musculoskeletal system procedure (principal); T81.4XXA Infection following a procedure, initial encounter; F17.203 Nicotine dependence unspecified, with withdrawal; M87.9 Osteonecrosis, unspecified; B96.89 Other specified bacterial agents as the cause of diseases classified elsewhere; Y83.8 Other surgical procedures as the cause of abnormal reaction of the patient, or of later complication, without mention of misadventure at the time of the procedure

== ENCOUNTER → 2017-10-22 19:31 | Outpatient (CLI) | payer MEDICARE, BC ==
[2017-10-11 15:52] VITALS: BMI 23.4
[~2017-10-22 19:31] MED LIST changes: +ENDOCET 10-3251 TAB PO; +ROCEPHIN 2 GM/D52 G1 IV; +TRAZODONE HCL50 MG PO
[2017-10-22 21:51] LABS: C-REACTIVE PROTEIN 1.4 mg/dL (0.0-0.9); CREATININE - SERUM 1.1 mg/dL (0.6-1.3)
[2017-10-22 21:58] LABS: BASOPHILS 0.4 % (0-2); EOSINOPHILS 5.8 % (0-7); HEMOGLOBIN 13.6 g/dL (13.5-17.5); IMMATURE GRANULOCYTES 0.1 % (0-5); LYMPHOCYTES 16.4 % (15-50); MCH 35.2 pg (26.0-34.0); MCV 103.6 fL (80.0-100.0); MONOCYTES 8.3 % (2-11); RBC 3.86 10x6/uL (4.20-6.10); RDW 12.2 % (11.5-14.5); WBC 7.8 10x3/uL (4.8-10.8)
[2017-10-22 22:01] LABS: PLATELET COUNT 344 10x3/uL (130-400)
[2017-10-22 22:37] LABS: ERYTHROCYTE SEDIMENTATION RATE 42 mm/hr (0-20)
== END | disposition home or self-care (01) ==
LOC: D.LABREF 19:31
PROVIDERS: Student in an Organized Health Care Education/Training Program
DX: M86.60 Other chronic osteomyelitis, unspecified site (principal)

== ENCOUNTER → 2017-10-29 20:04 | Outpatient (CLI) | payer MEDICARE, BC ==
[2017-10-11 15:52] VITALS: BMI 23.4
[2017-10-29 21:27] LABS: BASOPHILS 0.6 % (0-2); EOSINOPHILS 4.3 % (0-7); HEMATOCRIT 40.2 % (42.0-54.0); HEMOGLOBIN 13.5 g/dL (13.5-17.5); IMMATURE GRANULOCYTES 0.1 % (0-5); LYMPHOCYTES 22.5 % (15-50); MCH 34.3 pg (26.0-34.0); MCHC 33.6 g/dL (31.0-37.0); MEAN PLATELET VOLUME 9.9 fL (7.4-10.4); MONOCYTES 10.2 % (2-11); NEUTROPHILS 62.3 % (40-80); PLATELET COUNT 302 10x3/uL (130-400); RBC 3.94 10x6/uL (4.20-6.10); RDW 12.3 % (11.5-14.5); WBC 6.9 10x3/uL (4.8-10.8)
[2017-10-29 21:46] LABS: C-REACTIVE PROTEIN 0.7 mg/dL (0.0-0.9)
[2017-10-29 22:35] LABS: ERYTHROCYTE SEDIMENTATION RATE 10 mm/hr (0-20)
== END | disposition home or self-care (01) ==
LOC: D.LABREF 20:04
PROVIDERS: Student in an Organized Health Care Education/Training Program
DX: M86.9 Osteomyelitis, unspecified (principal)

== ENCOUNTER 2017-12-24 18:43 | Emergency (ER) | payer MEDICARE, BC ==
[~2017-12-24] VITALS: Ht 182.9 cm; Wt 78.6 kg
[2017-12-24 18:56] VITALS: Ht 182.9 cm; Wt 78.6 kg
[2017-12-24 19:34] LABS: BASOPHILS 0.4 % (0-2); EOSINOPHILS 3.1 % (0-7); HEMATOCRIT 46.3 % (42.0-54.0); HEMOGLOBIN 16.3 g/dL (13.5-17.5); IMMATURE GRANULOCYTES 0.1 % (0-5); LYMPHOCYTES 28.8 % (15-50); MCH 35.2 pg (26.0-34.0); MCHC 35.2 g/dL (31.0-37.0); MEAN PLATELET VOLUME 9.8 fL (7.4-10.4); MONOCYTES 10.5 % (2-11); NEUTROPHILS 57.1 % (40-80); RBC 4.63 10x6/uL (4.20-6.10); WBC 7.1 10x3/uL (4.8-10.8)
[2017-12-24 19:38] LABS: PLATELET COUNT 234 10x3/uL (130-400)
[2017-12-24 19:55] LABS: ALBUMIN 3.8 g/dL (3.4-5.0); ALKALINE PHOSPHATASE 77 U/L (46-116); ALT (SGPT) 26 U/L (10-68); AMYLASE - SERUM 58 U/L (25-115); BILIRUBIN - TOTAL 0.43 mg/dL (0.2-1.3); CALC OSMOLALITY 280 mosm/kg (275-300); CALCIUM 9.5 mg/dL (8.5-10.1); CHLORIDE - SERUM 102 mmol/L (98-107); GLUCOSE 112 mg/dL (74-106); LIPASE 189 U/L (73-393); POTASSIUM - SERUM 3.9 mmol/L (3.5-5.1); SODIUM 139 mmol/L (136-145); UREA NITROGEN 18 mg/dL (7-18); eGFR NON AFRICAN AMERICAN 78 mL/min (90-120)
[2017-12-24 20:00] LABS: CARBON DIOXIDE 31.1 mmol/L (21.0-32.0)
[2017-12-24] MEDS ORDERED: LEVAQUIN750 MG PO (21:31)
[2017-12-24] MEDS ORDERED: ZOFRAN4 MG PO (21:31)
[2017-12-24 23:36] VITALS: BP 126/67
== END 2017-12-24 23:37 | disposition home or self-care (01) ==
LOC: D.ER 18:43
PROVIDERS: Family Medicine
DX: K52.9 Noninfective gastroenteritis and colitis, unspecified (principal); I10 Essential (primary) hypertension